=== PATIENT | male | born 1980 | race Caucasian/White ===

== ENCOUNTER 2020-06-19 00:41 | Emergency (ER) | payer SELFPAY ==
[2020-06-19 01:06] LABS: #Basophils 0.1 thou/uL (0.0-0.2); #Eosinphils 0.2 thou/uL (0.0-0.7); #Lymphocytes 3.7 thou/uL (1.20-3.40); #Monocytes 1.2 thou/uL (0.11-0.59); #Neutrophils 7.5 thou/uL (1.40-6.50); %Basophils 0.6 % (0.0-1.0); %Eosinophils 1.5 % (0.0-10.0); %Monocytes 9.4 % (0.0-10.0); %Neutrophils 59.6 % (42.0-75.0); Mean Corpuscular HGB CONC 33.2 g/dL (32.0-36.0); Mean Corpuscular Volume 90.3 fL (78.0-98.0); Mean Platelet Volume 8.2 fL (7.4-10.4); Platelet Count 400 thou/uL (130-400); RBC Distribution Width 11.9 % (11.5-14.5); White Blood Cell (WBC) Count 12.6 thou/uL (4.8-10.8)
[2020-06-19] MEDS ORDERED: hydrOXYzine 25 MG TAB ONE (01:17)
[2020-06-19 01:30] LABS: ALT (SGPT) 45 U/L (8-55); AST (SGOT) 30 U/L (5-34); Albumin 4.7 g/dL (3.5-5.0); Alkaline Phosphatase 74 U/L (40-110); Anion Gap 16 mmol/L (10-20); BUN (Urea Nitrogen) 16 mg/dL (8.9-20.6); Bilirubin, Total 0.2 mg/dL (0.2-1.2); Calc. Creatinine Clearance 0 mL/min (70-130); Calcium 9.8 mg/dL (7.8-10.44); Carbon Dioxide 23 mmol/L (22-29); Chloride 102 mmol/L (98-107); Estimated GFR-MDRD 75; Globulin 3.4 g/dL (2.4-3.5); Glucose 136 mg/dL (70-105); Potassium 3.1 mmol/L (3.5-5.1); Protein, Total 8.1 g/dL (6.0-8.3); Sodium 138 mmol/L (136-145)
[2020-06-19] MEDS ORDERED: Lorazepam 2 MG/ML VIAL ONE (01:50)
[2020-06-19 01:54] LABS: CK (CPK) 569 U/L (30-200); Lipase 25 U/L (8-78)
--- NOTE | 2020-06-19 07:25 | RAD ---
CHEST 1 VIEW: Date: 06/19/2020 INDICATION: 39-year-old male with chest pain. FINDINGS: Lungs are clear. Heart size is normal. No pleural effusion or pneumothorax is evident. No acute osseo us abnormality is evident. IMPRESSION: No acute cardiopulmonary abnormality. POS: BH
--- NOTE | 2020-06-19 08:00 | CT ---
PRELIMINARY REPORT/[facility]/EMERGENCY AFTER HOURS PROCEDURE: EXAM: CTA Chest with Intravenous Contrast CLINICAL HISTORY: CHEST PAIN BEGAN AROUND 10-11AM. DENIES SOB. DENIES N/V. PT STATES, "I JUST FEEL NERVOUS". PRE-WORKOU T DRINK TODAY PER PT AROUND 1PM. Elevated D-dimer TECHNIQUE: Axial CTA images of the chest with intravenous contrast. Three-dimensional MIP/volume rendered reform ations were performed. CONTRAST: With; ISOVUE COMPARISON: None provided. FINDINGS: PULMONARY ARTERIES There is no intraluminal filling defect suspicious for PE. AORTA No thoracic aortic aneurysm or dissection. LUNGS The lungs are clear. No pulmonary mass. No focal airspace consolidation. PLEURAL SPACES No pleural effusion. No pneumothorax. HEART AND MEDIASTINUM No cardiomegaly. No significant pericardial effusion. LYMPH NODES No lymphadenopathy. BONES No focal osseous abnormality or acute fracture. Multilevel mild degenerative disc disease. CHEST WALL AND UPPER ABDOMEN Images through the upper abdomen are unremarkable. The chest wall is unremarkable. IMPRESSION: No evidence of a pulmonary embolism. No acute chest abnormality. ELECTRONICALLY SIGNED BY: Noel Escalera MD Jun 19, 2020 2:42:19 AM CDT FINAL REPORT EMERGENCY AFTER HOURS CTA CHEST: I agree with the preliminary report provided by [facility]. No definite pulmonary embolism is evident within limitations of exam. The extent of the contrast opac ification of the pulmonary arterial tree slightly limits evaluation of the segmental and subsegmental pulmonary arterial tree. There is no secondary evidence to suggest presence of PE. No acute cardiopu lmonary abnormality is grossly evident. POS:
[2020-06-19] MEDS ORDERED: Iopamidol 370 76% 100 ML VIAL ONE (14:11)
--- NOTE | 2020-06-21 15:25 | EKG ---
Test Reason : Blood Pressure : / mmHG Vent. Rate : 143 BPM Atrial Rate : 143 BPM P-R Int : 138 ms QRS Dur : 090 ms QT Int : 282 ms P-R-T Axes : 062 052 024 degrees QTc Int : 435 ms Sinus tachycardia Otherwise normal ECG Confirmed by KEIRY HEARD DO ([id number]), associate entertainment editor ELIZABETH OLIVEIRA ([id number]) on 06/21/2020 3:24:33 PM Referred By: Confirmed By:KEIRY HEARD DO
== END 2020-06-19 05:46 | disposition home or self-care (01) ==
LOC: ERS 00:41
DX: R07.9 Chest pain, unspecified (principal); F41.9 Anxiety disorder, unspecified; I10 Essential (primary) hypertension; Z79.899 Other long term (current) drug therapy
CPT/HCPCS: 36415; 71045; 71275; 80053; 82550; 83690; 84484; 85025; 85379; 93005; 96361; 96374; J2060; Q9967